=== PATIENT | female | born 1970 | race Caucasian/White ===

== ENCOUNTER 2016-10-23 03:49 | Emergency (ER) | payer MEDICARE, MEDICAID ==
[2016-10-23 04:09] VITALS: TEMP 97.4; BMI 36.8
--- NOTE | 2016-10-23 04:18 | EDPRACDOC ---
- General Information Chief Complaint: Abdominal Pain Stated Complaint: VOMITING (HERNIA SURGERY 10/15/16) Time Seen by Provider: 10/23/16 04:14 Information Source: Patient Mode Of Arrival: Car Home Medications: Home Medications Clozapine 25 mg PO QHS PRN 07/11/16 Trazodone HCl 200 mg PO QHS 07/11/16 Hydroxyzine Pamoate [Vistaril] 25 mg PO Q6 PRN 08/28/16 Paliperidone Palmitate [Invega Sustenna] 234 mg IM QMONTH 08/28/16 Hydrocodone Bit/Acetaminophen [Lortab 5/325] 1 tab PO Q4-6H PRN #15 tab Nitrofurantoin [Macrobid] 100 mg PO BID #14 cap 10/02/16 Ondansetron HCl [Zofran] 4 mg PO Q8H PRN #15 tab 10/02/16 Ondansetron HCl [Zofran] 4 mg PO Q6H PRN #12 tab 10/23/16 Promethazine HCl [Phenergan] 25 mg NV Q8H PRN #12 supp 10/23/16 Promethazine [Phenergan] 25 mg PO Q8H PRN #15 tab 10/23/16 Allergies/Adverse Reactions: Allergies Allergy/AdvReac Type Severity Reaction Status Date / Time amoxicillin trihydrate Allergy Rash-Genera Verified 10/23/16 04:04 [From Augmentin] lized moxifloxacin HCl Allergy Rash-Genera Verified 10/23/16 04:04 [From Avelox] lized potassium clavulanate Allergy Rash-Genera Verified 10/23/16 04:04 [From Augmentin] lized sodium hydroxide Allergy Rash-Genera Uncoded 10/23/16 04:04 lized - History of Present Illness Onset: 10 hrs ago HPI: HAD VENTRAL HERNIA ABDOMINAL SURGERY September AT [facility]. 10 HOURS N/V/ DIARRHEA ALL NIGHT. STARTED AFTER DINNER. VOMITING WITH ANYTHING PO. DISCHARGE FROM HOSPITAL THURSDAY (3 DAYS AGO). PAIN 9/10. NO FEVER/CHILLS. Last Menstrual Period: 2 weeks : No Adult Abdominal History: Denies: Urolithiasis, Bowel Obstruction Female Abdominal History: Denies: UTI, Ectopic, PID, Urolithiasis ED Past Medical History - History Reviewed Yes Nurses notes reviewed and agree except as marked - Patient Medical History GI/ History: Denies: Urinary Tract Infection Psychological History: Reports: Depression, Anxiety Surgical History: Reports: Cholecystectomy - Social Medical History Smoking Status: Never smoker EDM Review of Systems - Review of Systems Constitutional: No Symptoms Reported. negative: Fatigue, Loss of Appetite, Weakness Eyes: No Symptoms Reported. negative: Redness, Blurred Vision, Double Vision, Discharge, Pain, Light Sensitive, Photophobia Ears: No Symptoms Reported. negative: Pain, Hearing Loss, Drainage, Ear Pulling Throat: No Symptoms Reported. negative: Pain, Swelling Nose: No Symptoms Reported. negative: Congestion, Bleeding, Discharge, Injection, Swelling, Deformity, Ecchymosis, Tender, Abrasion, Laceration Mouth: No Symptoms Reported. negative: Pain, Drooling Respiratory: Shortness of Breath Cardiovascular: No Symptoms Reported. negative: Chest Pain, Palpitations, Syncope, Edema, Orthopnea, PND, Skin Mottling, Cyanosis Gastrointestinal: Diarrhea, Nausea, Pain, Vomiting. negative: Melena Genitourinary: No Symptoms Reported. negative: Dysuria, Hematuria, Frequency, Discharge, Bleeding, Testicular Pain, Neurological: No Symptoms Reported. negative: Headache, Dizziness, Seizure, Numbness, Weakness, Speech Difficulty, Gait Difficulty Musculoskeletal: No Symptoms Reported. negative: Neck, Chestwall, Ribs, Back, Shoulder, Arm, Elbow, Forearm, Wrist, Hand, Pelvis, Hip, Femur, Knee, Leg, Ankle , Foot Integumentary: No Symptoms Reported. negative: Itching, Rash, Bruising, Wound Allergic/Immunologic: No Symptoms Reported. negative: Hives, Itching Hematologic: No Symptoms Reported. negative: Lymphadenopathy, Easy Bruising, Easy Bleeding Endocrine: No Symptoms Reported. negative: Weight Gain, Weight Loss Psychiatric: No Symptoms Reported. negative: Anxiety, Depression, Hallucinations, Insomnia, Suicidal - Physical Exam Constitutional: Alert (Awake), No apparent distress Oriented to: Time, Person, Place Last recorded Vital Signs: Last Vital Signs Temp 97.4 F L 10/23/16 03:53 Pulse 87 10/23/16 06:10 Resp 18 10/23/16 06:10 BP 121/69 10/23/16 06:10 Pulse Ox 95 10/23/16 06:10 Oxygen Pulse Oxygen Saturation 95 O2 Device Room Air Oxygen Flow Rate Fraction of Inspired Oxygen ( FIO2) - HEENT Head: Normal ( normocephalic) Eye Exam: Normal (PERRL, EOMI, Sclera white) Oropharynx: Normal (Pharynx:Moist without exudate,Gums-no swelling) Nose: No Symptoms Reported (septum midline) Neck: Normal (FROM, trachea at midline) - Respiratory/Cardiovascular Respiratory: Normal - CTA (BBS clear to auscultation without adventitious sounds ) Cardiovascular: Normal (RRR without murmur, gallop or rub) - GI Auscultation: Absent Palpation: Normal (Soft,No rebound or guarding, non distended) Tenderness: Diffuse, Other (KONG DRAINS B/L SEROSANGUINOUS FLUID, MIDLINE INCISION C/D/I.) Ku's Sign: Negative - Musculoskeletal Back: Normal (Non-Tender) Extremities: Normal (Normal tone, Pulses 2+ No cyanosis or edema, FROM) - Integumentary Skin: Normal, Warm, Dry Lymphatics: Normal (no adenopathy) - Neurologic Memory Impaired: Normal Motor Function: Normal (Normal tone, Pulses 2+ No cyanosis or edema, FROM) Cranial Nerve: Normal (CN II-X11 intact sensation, strength 5/5) Cerebellar: Normal Mood Description: Normal Perception: Normal - Re-evaluation Re-evaluation 1 Re-evaluation Time: 06:36 NO DISTRESS. FEELING MUCH BETTER. HAS OXY AT HOME. - Results 10/23/16 04:37 10/23/16 04:37 WBC 15.4 xk/uL (3.8-10.8) H 10/23/16 04:37 RBC 4.92 xM/uL (4.20-5.40) 10/23/16 04:37 Hgb 13.6 g/dL (12.0-16.0) 10/23/16 04:37 Hct 41.2 % (36-47) 10/23/16 04:37 MCV 84 fL (81-99) 10/23/16 04:37 MCH 27.7 pg (27-32) 10/23/16 04:37 MCHC 33.0 g/dl (33-36) 10/23/16 04:37 RDW 13.8 % (11.5-14.5) 10/23/16 04:37 Plt Count 416 xk/uL (130-400) H 10/23/16 04:37 MPV 9.0 fL (7.4-10.4) 10/23/16 04:37 Neut % (Auto) Cancelled 10/23/16 04:37 Lymph % (Auto) Cancelled 10/23/16 04:37 Gaines % (Auto) Cancelled 10/23/16 04:37 Eos % (Auto) Cancelled 10/23/16 04:37 Baso % (Auto) Cancelled 10/23/16 04:37 Absolute Neuts (auto) Cancelled 10/23/16 04:37 Absolute Lymphs (auto) Cancelled 10/23/16 04:37 Seg Neuts % (Manual) 80 % (45-76) H 10/23/16 04:37 Band Neutrophils % 1 % (0-5) 10/23/16 04:37 Lymphocytes % (Manual) 14 % (17-44) L 10/23/16 04:37 Monocytes % (Manual) 3 % (0-10) 10/23/16 04:37 Eosinophils % (Manual) 1 % (0-5) 10/23/16 04:37 Basophils % (Manual) 1 % (0-2) 10/23/16 04:37 Absolute Neutrophils 12.47 xk/uL (1.7-8.2) H 10/23/16 04:37 Absolute Lymphocytes 2.16 xk/uL (0.65-4.75) 10/23/16 04:37 Vacuolated Neuts Few 10/23/16 04:37 Platelet Estimate Norm (NORMAL) 10/23/16 04:37 RBC Morphology Norm 10/23/16 04:37 Sodium 142 mEq/L (137-146) 10/23/16 04:37 Potassium 4.8 mEq/L (3.5-5.1) 10/23/16 04:37 Chloride 100 mEq/L (98-107) 10/23/16 04:37 Carbon Dioxide 28 mMOL/L (22-33) 10/23/16 04:37 Anion Gap 19 mEq/L (8-16) H 10/23/16 04:37 BUN 13 MG/DL (7-17) 10/23/16 04:37 Creatinine 1.10 MG/DL (0.52-1.04) H 10/23/16 04:37 Estimated GFR (MDRD) 54 mL/min (>=60) L 10/23/16 04:37 Glucose 154 MG/DL (70-99) H 10/23/16 04:37 Calculated Osmolality 276 MOs/Kg (270-290) 10/23/16 04:37 Calcium 10.0 MG/DL (8.4-10.2) 10/23/16 04:37 Total Bilirubin 0.8 MG/DL (0.2-1.3) 10/23/16 04:37 AST 40 IU/L (14-36) H 10/23/16 04:37 ALT 53 IU/L (9-52) H 10/23/16 04:37 Alkaline Phosphatase 153 IU/L (38-126) H 10/23/16 04:37 Total Protein 7.3 G/DL (6.3-8.2) 10/23/16 04:37 Albumin 4.1 G/DL (3.5-5.0) 10/23/16 04:37 Lab Results 10/23/16 10/23/16 04:37 04:37 WBC 15.4 H RBC 4.92 Hgb 13.6 Hct 41.2 MCV 84 MCH 27.7 MCHC 33.0 RDW 13.8 Plt Count 416 H MPV 9.0 Neut % (Auto) Cancelled Lymph % (Auto) Cancelled Gaines % (Auto) Cancelled Eos % (Auto) Cancelled Baso % (Auto) Cancelled Absolute Neuts (auto) Cancelled Absolute Lymphs (auto) Cancelled Seg Neuts % (Manual) 80 H Band Neutrophils % 1 Lymphocytes % (Manual) 14 L Monocytes % (Manual) 3 Eosinophils % (Manual) 1 Basophils % (Manual) 1 Absolute Neutrophils 12.47 H Absolute Lymphocytes 2.16 Vacuolated Neuts Few Platelet Estimate Norm RBC Morphology Norm Sodium 142 Potassium 4.8 Chloride 100 Carbon Dioxide 28 Anion Gap 19 H BUN 13 Creatinine 1.10 H Estimated GFR (MDRD) 54 L Glucose 154 H Calculated Osmolality 276 Calcium 10.0 Total Bilirubin 0.8 AST 40 H ALT 53 H Alkaline Phosphatase 153 H Total Protein 7.3 Albumin 4.1 Decision Time to Discharge: 06:34 - Departure Yes I personally saw and evaluated the patient. Disposition: Home Condition: Stable Final Diagnosis: Ileitis Instructions: Acute Abdominal Pain (ED) Education/Counseling Given To: Patient Education/Counseling Given Regarding: Diagnosis Prescriptions: Ondansetron HCl [Zofran] 4 mg PO Q6H PRN #12 tab PRN Reason: Nausea/Vomiting Promethazine [Phenergan] 25 mg PO Q8H PRN #15 tab PRN Reason: Nausea/Vomiting Promethazine HCl [Phenergan] 25 mg NV Q8H PRN #12 supp PRN Reason: Nausea/Vomiting Additional Instructions: FOLLOW UP WITH SURGEON ON THURSDAY SCHEDULED.
[2016-10-23] MEDS ORDERED: NS 1,000 ML IV ONE (04:22)
[2016-10-23] MEDS ORDERED: HYDROmorphone 1 MG INJECTION IV ONE (04:22)
[2016-10-23] MEDS ORDERED: ONDANSETRON HCL 4 MG/2 ML VIAL IV ONE (04:29)
[2016-10-23] MEDS ORDERED: Pharmacy Review for Metformin - IV Contrast Given SCH (05:00)
[2016-10-23 05:04] LABS: BLOOD UREA NITROGEN 13 MG/DL (7-17); CALCULATED OSMOLALITY 276 MOs/Kg (270-290); CHLORIDE 100 mEq/L (98-107); GLUCOSE 154 MG/DL (70-99); SODIUM LEVEL 142 mEq/L (137-146); TOTAL PROTEIN 7.3 G/DL (6.3-8.2)
[2016-10-23 05:26] LABS: SEG NEUTROPHIL 80 % (45-76); TOTAL CELL COUNT 100
--- NOTE | 2016-10-23 06:07 | DIRPT ---
CLINICAL DATA: Acute onset of generalized abdominal pain, nausea, vomiting and diarrhea. Initial encounter. EXAM: CT ABDOMEN AND PELVIS WITH CONTRAST TECHNIQUE: Multidetector CT imaging of the abdomen and pelvis was performed using the standard protocol following bolus administration of intravenous contrast. CONTRAST: 100 mL of Isovue 370 IV contrast COMPARISON: CT of the abdomen and pelvis from 10/02/2016 FINDINGS: A trace right pleural effusion is noted, with mild bibasilar atelectasis. The liver and spleen are unremarkable in appearance. The gallbladder is within normal limits. The pancreas and adrenal glands are unremarkable. Left-sided renal pelvicaliectasis likely remains within normal limits. There is relatively severe left renal atrophy, with scattered bilateral renal cysts and a 6 mm nonobstructing stone at the lower pole of the left kidney. The right kidney is otherwise unremarkable. No obstructing ureteral stones are identified. A large amount of inflammation is noted about small bowel loops at the mid abdomen, with diffuse wall thickening and surrounding soft tissue stranding. Some of this may be postoperative in nature, though infectious or inflammatory ileitis cannot be excluded. Postoperative change is noted along the anterior abdominal wall, with a residual small to moderate anterior abdominal wall hernia, containing only fat. Overlying drainage catheters are noted within the anterior abdominal wall. No focal fluid collections are seen. A small amount of free fluid is seen within the pelvis, likely reflecting the small bowel process. Small bowel loops are dilated to 3.5 cm, but there is no definite evidence of obstruction. This likely reflects mild dysmotility. The stomach is within normal limits. No acute vascular abnormalities are seen. The appendix is normal in caliber, without evidence of appendicitis. The colon is largely decompressed and grossly unremarkable in appearance. The bladder is decompressed and not well assessed. The uterus is grossly unremarkable in appearance. The ovaries are relatively symmetric. No suspicious adnexal masses are seen. No inguinal lymphadenopathy is seen. No acute osseous abnormalities are identified. IMPRESSION: 1. Large amount of inflammation about small bowel loops in the mid abdomen, with diffuse wall thickening and surrounding soft tissue stranding. Some of this may be postoperative in nature, though infectious or inflammatory ileitis cannot be excluded. Would correlate with the patient's symptoms. 2. Distention of small-bowel loops to 3.5 cm, without evidence of obstruction. This likely reflects mild small bowel dysmotility. 3. Small amount of associated free fluid in the pelvis. 4. Postoperative change along the anterior abdominal wall, with a residual small to moderate anterior abdominal wall hernia, containing only fat. Overlying drainage catheters noted within the anterior abdominal wall. No focal fluid collection seen. 5. Trace right pleural effusion, with mild bibasilar atelectasis. 6. Relatively severe left renal atrophy, with a 6 mm nonobstructing stone at the lower pole of the left kidney, and scattered bilateral renal cysts. Electronically Signed By: Adrián Christensen M.D. On: 10/23/2016 06:05
[2016-10-23 06:43] VITALS: BP 123/66; PULSE 81
== END 2016-10-23 06:42 | disposition home or self-care (01) ==
LOC: ED 03:49
DX: K52.9 Noninfective gastroenteritis and colitis, unspecified (principal)
CPT/HCPCS: 36415; 74177; 80053; 85007; 85027; 96361; 96374; 96375; 99284; A9698; J1170; J2405